=== PATIENT | male | born 2000 | race Caucasian/White ===

== ENCOUNTER 2021-07-25 03:13 | Emergency (ER) | payer OTHER ==
[~2021-07-25] VITALS: Ht 182.9 cm; Wt 81.6 kg
[2021-07-25] MEDS ORDERED: SULF1TAB48 PO (04:57)
--- NOTE | 2021-07-25 05:05 | NUR ---
Patient discharged to home in stable condition. Written and verbal after care instructions given. Patient verbalizes understanding of instructions. Stressed follow up or return to ER for worsening s/s.
== END 2021-07-25 05:06 | disposition home or self-care (01) ==
LOC: ER 03:20
DX: L73.9 Follicular disorder, unspecified (principal)
CPT/HCPCS: A4663